=== PATIENT | female | born 1985 | race Caucasian/White ===

== ENCOUNTER 2019-03-24 16:34 | Emergency (ER) | payer OTHER ==
[2019-03-24 17:22] VITALS: BMI 29.5
[2019-03-24 17:30] VITALS: O2SAT 100
[2019-03-24] MEDS ORDERED: Sodium Chloride 0.9% 1,000 ML IV ONE (17:47)
[2019-03-24] MEDS ORDERED: Sodium Chloride 0.9% 1,000 ML ONE (17:55)
--- NOTE | 2019-03-24 17:57 | C.PDOC ---
History Of Present Illness 33-year-old female, who is currently around 13 weeks , presents to the ED for evaluation of vaginal spotting associated with mild suprapubic cramping since this afternoon. Patient states she had an ultrasound done today, and is unsure of the results. Patient denies fever, chills, or any additional complaints at this time. Patient is . Time Seen by Provider: 03/24/19 17:42 Chief Complaint (Nursing): Female Genitourinary History Per: Patient History/Exam Limitations: no limitations Onset/Duration Of Symptoms: Hrs Current Symptoms Are (Timing): Still Present Quality Of Discomfort: Cramping Associated Symptoms: denies: Fever, Chills Abnormal Vaginal Bleeding: Yes : 3 Para: 1 Past Medical History Reviewed: Historical Data, Nursing Documentation, Vital Signs Vital Signs: Last Vital Signs Temp 99.0 F 03/24/19 17:23 Pulse 80 03/24/19 17:23 Resp 17 03/24/19 17:23 BP 115/76 03/24/19 17:23 Pulse Ox 100 03/24/19 17:23 Primary Care Provider: Balaji Dick R - Medical History PMH: Hypothyroidism Surgical History: No Surg Hx Family History: States: Unknown Family Hx - Social History Hx Alcohol Use: No Hx Substance Use: No - Immunization History Hx Tetanus Toxoid Vaccination: No Hx Influenza Vaccination: No Hx Pneumococcal Vaccination: No Review Of Systems Constitutional: Negative for: Fever, Chills Gastrointestinal: Positive for: Abdominal Pain (cramping ) Genitourinary: Positive for: Vaginal Bleeding Physical Exam - Physical Exam Appears: Non-toxic, No Acute Distress Skin: Normal Color, Warm, Dry Head: Atraumatic, Normacephalic Eye(s): bilateral: Normal Inspection Oral Mucosa: Moist Neck: Supple Chest: Symmetrical, No Deformity, No Tenderness Cardiovascular: Rhythm Regular, No Murmur Respiratory: Normal Breath Sounds, No Rales, No Rhonchi, No Wheezing Gastrointestinal/Abdominal: Soft, Tenderness (suprapubic ), No Guarding, No Rebound Extremity: Normal ROM, Capillary Refill (less than 2 seconds ) Neurological/Psych: Oriented x3, Normal Speech, Normal Cognition ED Course And Treatment - Laboratory Results Result Diagrams: 03/24/19 18:05 03/24/19 18:05 O2 Sat by Pulse Oximetry: 100 (on RA) Pulse Ox Interpretation: Normal Medical Decision Making Medical Decision Making: ro miscarraige vs ectopic Progress: Bloodwork, urinalysis and transvaginal ultrasound ordered and reviewed. IV Fluids given. Patient does not want anything for pain at this time. case discussed incluindg us findings with arely bermudez, pt obgyn. agreeswith outpt [place] [address] Phone: [phone] Report Submission Date: March 24, 2019 8:38:51 PM EDT Name: AFSANEH LINDER Exam Date: March 24, 2019 7:13:23 PM EDT Modality Type: SD\US\SR Description: US - UTERUS REAL TIME W/IMAGE DOC /MATERNAL EVAL PLUS ANATOMIC EXAM Gender: F Laterality: Not applicable : 87 Referring Physician: Paramjit Crabtree (DO) History ABD PAIN , PREG. Comparison None available. Findings Uterus Single live intrauterine gestation. CRL equivalent to 13 wks/1 day gestation Gestational sac diameter measures 6.9 cm. Heterogeneous area seen within the sac, possibly clot. Heart rate: 140 bpm. Uterus measures 15.28 x 8.94 x 7.79 cm. No mass. Cervix Long and closed measuring 4.01 cm. No cervical abnormality seen. Right Ovary Measures 2.31 x 1.67 x 2.12 cm. No mass. Normal flow. Left Ovary Measures 3.12 x 2.38 x 3.55 cm. No mass. Normal flow. Cyst measures 1.75 x 1.43 x 2.43 cm. Other Findings Low posterior placenta. Impression 1. Single live intrauterine gestation. 2. Left ovarian cyst. 3. Heterogeneous area seen within the sac, possibly clot. 4. Low lying posterior placenta. 5. Consider follow-up study in 2-4 weeks. Electronically signed on March 24, 2019 8:38:51 PM EDT by: Matthias Tran M.D., M.B.A., Certified By [employer] Trained MRI and CT Specialist Disposition - Disposition Disposition: HOME/ ROUTINE Disposition Time: 21:00 Condition: STABLE Additional Instructions: return to er with worsening symptoms or concerns. follow up with your obgyn Instructions: Threatened Miscarriage Forms: [facility] (Italian) - Clinical Impression Clinical Impression: Threatened miscarriage - Scribe Statement The provider has reviewed the documentation as recorded by the Scribe (Margo Huizar) Provider Attestation: All medical record entries made by the Scribe were at my direction and personally dictated by me. I have reviewed the chart and agree that the record accurately reflects my personal performance of the history, physical exam, medical decision making, and the department course for this patient. I have also personally directed, reviewed, and agree with the discharge instructions and disposition.
[2019-03-24 18:20] LABS: BASO % 0.4 % (0.0-2.0); EOS # 0.1 K/uL (0.0-0.7); EOS % 0.6 % (0.0-4.0); HEMOGLOBIN 11.6 g/dL (11.0-16.0); LYMPH # 1.2 K/uL (1.0-4.3); LYMPH % 11.6 % (20.0-40.0); MEAN CELL VOLUME 90.4 fL (81.0-99.0); MEAN CORPUSCULAR HEMOGLOBIN 30.3 pg (27.0-31.0); MEAN CORPUSCULAR HGB CONC 33.6 g/dL (33.0-37.0); MEAN PLATELET VOLUME 8.9 fL (7.2-11.7); MONO # 0.6 K/uL (0.0-0.8); MONO % 5.6 % (0.0-10.0); NEUT # 8.6 K/uL (1.8-7.0); NEUT % 81.8 % (50.0-75.0); RBC 3.82 Mil/uL (3.80-5.20); RED CELL DISTRIBUTION WIDTH 13.4 % (11.5-14.5); WHITE BLOOD COUNT 10.5 K/uL (4.8-10.8)
[2019-03-24 18:23] LABS: ALB/GLOB RATIO 1.2 (1.0-2.1); ALT/SGPT 19 U/L (9-52); AST/SGOT 21 U/L (14-36); BLOOD UREA NITROGEN 7 mg/dL (7-17); CALCIUM 9.3 mg/dl (8.6-10.4); GFR NON-AFRICAN AMERICAN > 60
[2019-03-24 18:28] LABS: PARTIAL THROMBOPLASTIN TIME 31.9 SECONDS (21-34); PROTHROMBIN TIME 11.4 SECONDS (9.7-12.2)
[2019-03-24 18:49] LABS: HCG,QUALITATIVE URINE POSITIVE (NEGATIVE)
[2019-03-24 19:15] LABS: SQUAMOUS EPITHIAL 1 /hpf (0-5); URINE BACTERIA OCC (<OCC); URINE BILIRUBIN NEGATIVE (NEGATIVE); URINE BLOOD 3+ (NEGATIVE); URINE CLARITY Hazy (Clear); URINE COLOR Yellow (YELLOW); URINE GLUCOSE (UA) NORMAL (Normal); URINE LEUKOCYTE ESTERASE NEG Leu/uL (Negative); URINE PROTEIN NEGATIVE (NEGATIVE); URINE UROBILINOGEN NORMAL mg/dL (0.2-1.0)
[2019-03-24 21:02] VITALS: BP 112/75; PULSE 71; RESP 20; TEMP 98.1
--- NOTE | 2019-03-25 11:45 | US ---
Date of service: 03/24/2019 Indication: abd pain preg Comparison: None available Technique: Transabdominal pelvic ultrasound Findings: The uterus measures approximately 15.3 x 8.9 x 7.8 cm. Anteverted. Cervix length measures approximately 4.0 cm. There is a single intrauterine fetus present. Yolk sac is not identified. The gestational sac measures 6.9 cm. The crown-rump length measures 6.8 cm and is compatible with a gestational age of 13 weeks 1 day. Posterior placenta appears low lying/previa. Heterogeneous echogenic region measuring approximately 6.7 x 3.6 cm without clear evidence of vascularity possibly perigestational hemorrhage. There is heart motion which measured 140.7 BPM. The right ovary measures 2.3 x 1.7 x 2.1 cm. The left ovary measures 3.1 x 2.4 x 3.6 cm and contains 1.8 x 1.4 x 2.4 cm cyst. Flow was demonstrated to both ovaries. Impression: Live single intrauterine with estimated gestational age 13 weeks 1 day by crown-rump length calculation. heart rate 140.7 bpm. Heterogeneous echogenic region measuring approximately 6.7 x 3.6 cm without clear evidence of vascularity possibly perigestational hemorrhage. Recommend clinical correlation and careful follow-up including repeat pelvic ultrasound in several days. Currently, there is evidence of low lying placenta/placenta previa. Due to placental trophotropism, the diagnosis of the placenta previa is generally not made before 20 weeks gestation. Follow-up ultrasound is recommended. Advise an anomaly screen at 16-18 weeks gestational age. 1.8 x 1.4 x 2.4 cm left ovarian cyst. Preliminary impression was provided by [employer]. Study marked for PA review
== END 2019-03-24 21:00 | disposition home or self-care (01) ==
LOC: C.ER 16:34
DX: O20.0 Threatened abortion (principal); Z3A.13 13 weeks gestation of pregnancy
CPT/HCPCS: 76815; 80053; 81001; 84702; 84703; 85025; 85610; 85730; 86850; 86900; 96360; 99284; J7030